=== PATIENT | male | born 1980 | race African-American/Black ===

== ENCOUNTER 2019-08-03 00:36 | Emergency (ER) | payer OTHER ==
[2019-08-03 01:49] VITALS: BMI 34.5
--- NOTE | 2019-08-03 02:04 | PDOC ---
History of Present Illness - General Chief Complaint: Edema Stated Complaint: SWELLING LEFT LEG Time Seen by Provider: 08/03/19 02:04 History Source: Patient Exam Limitations: No Limitations - History of Present Illness Initial Comments: 38 year old male with PMH obesity presented to ED for atruamatic LLE swelling x1 week. Pt denied trauma, injury, fall, chest pain, shortness of breath, fever , skin changes. ROS General: denied fever, chills, generalized weakness. HEENT: denied sore throat, rhinorrhea, ear pain. Cardiovascular: admitted to lower extremity swelling. denied chest pain, palpitations, syncope, diaphoresis. Respiratory: denied shortness of breath, cough, sputum production, hemoptysis. Gastrointestinal: denied abdominal pain, nausea, vomiting, diarrhea, constipation, blood in stool. Genitourinary: denied dysuria, increased urinary frequency, hematuria, urinary incontinence, flank pain. Back: denied back pain. Musculoskeletal: denied joint pain, muscle pain, joint swelling. Neurological: denied headache, dizziness, numbness, tingling, weakness. Integumentary: denied rash, laceration, abrasion. Hematologic/Lymphatic: denied bruising or bleeding. PE Constitutional: Well-nourished, Well-developed, appearing stated age. HEENT: head is normocephalic, atraumatic. EOMI. PERRLA. Neck: supple. Full ROM. Cardiovascular: regular heart rhythm. no murmurs. no pericardial friction rub. Respiratory: clear to auscultation bilaterally. no crackles, rhonchi or wheezing. no stridor. Gastrointestinal: soft, nontender. normal bowel sounds. no rebound, guarding, masses. Extremities: peripheral pulses intact. 4+ pitting edema LLE. 2+ pitting edema RLE. erythema and warmth to LLE. Neurological: CN 2-12 grossly intact. moves all four extremities. Psych: awake, alert, oriented x3. follows commands. answers questions appropriately. Past History - Past Medical History Allergies/Adverse Reactions: Allergies Allergy/AdvReac Type Severity Reaction Status Date / Time No Known Allergies Allergy Verified 08/03/19 01:49 Home Medications: Ambulatory Orders Ibuprofen [Motrin -] 800 mg PO TID #30 tablet 07/24/15 - Psycho Social/Smoking Cessation Hx Smoking History: Never smoked *Physical Exam - Vital Signs Last Vital Signs Temp Pulse Resp BP Pulse Ox 98.0 F 67 18 119/64 97 08/03/19 00:40 08/03/19 00:40 08/03/19 00:40 08/03/19 00:40 08/03/19 00:40 ED Treatment Course - LABORATORY CBC & Chemistry Diagram: 08/03/19 03:40 08/03/19 03:40 Medical Decision Making - Medical Decision Making 38 year old male with above PMH presented to ED for atraumatic LLE swelling x1 week. Initial Vital Signs Temp Pulse Resp BP Pulse Ox 98.0 F 67 18 119/64 97 08/03/19 00:40 08/03/19 00:40 08/03/19 00:40 08/03/19 00:40 08/03/19 00:40 Afebrile. No tachycardia. No tachypnea. No hypotension. No hypoxia on room air. Labs ordered: CBC, CMP, PT/PTT/INR Imaging ordered: bilateral duplex Medications ordered: none US called in. 08/03/19 04:32 CBC WBC 7.1 K/mm3 (4.0-10.0) 08/03/19 03:40 RBC 4.68 M/mm3 (4.00-5.60) 08/03/19 03:40 Hgb 13.6 GM/dL (11.7-16.9) 08/03/19 03:40 Hct 41.1 % (35.4-49) 08/03/19 03:40 MCV 88.0 fl (80-96) 08/03/19 03:40 MCH 29.0 pg (25.7-33.7) 08/03/19 03:40 MCHC 32.9 g/dl (32.0-35.9) 08/03/19 03:40 RDW 14.9 % (11.9-15.9) 08/03/19 03:40 Plt Count 172 K/MM3 (134-434) 08/03/19 03:40 MPV 10.5 fl (7.5-11.1) 08/03/19 03:40 Absolute Neuts (auto) 4.3 K/mm3 (1.5-8.0) 08/03/19 03:40 Neutrophils % 61.3 % (42.8-82.8) 08/03/19 03:40 Lymphocytes % 24.2 % (8-40) 08/03/19 03:40 Monocytes % 12.6 % (3.8-10.2) H 08/03/19 03:40 Eosinophils % 1.4 % (0-4.5) 08/03/19 03:40 Basophils % 0.5 % (0-2.0) 08/03/19 03:40 Nucleated RBC % 0 % (0-0) 08/03/19 03:40 CMP Sodium 140 mmol/L (136-145) 08/03/19 03:40 Potassium 4.1 mmol/L (3.5-5.1) 08/03/19 03:40 Chloride 106 mmol/L (98-107) 08/03/19 03:40 Carbon Dioxide 31 mmol/L (21-32) 08/03/19 03:40 Anion Gap 3 MMOL/L (8-16) L 08/03/19 03:40 BUN 13.8 mg/dL (7-18) 08/03/19 03:40 Creatinine 1.1 mg/dL (0.55-1.3) 08/03/19 03:40 Est GFR (CKD-EPI)AfAm 98.87 08/03/19 03:40 Est GFR (CKD-EPI)NonAf 85.31 08/03/19 03:40 Random Glucose 105 mg/dL (74-106) 08/03/19 03:40 Calcium 8.5 mg/dL (8.5-10.1) 08/03/19 03:40 Total Bilirubin 0.2 mg/dL (0.2-1) 08/03/19 03:40 AST 22 U/L (15-37) 08/03/19 03:40 ALT 35 U/L (13-61) 08/03/19 03:40 Alkaline Phosphatase 92 U/L (45-117) 08/03/19 03:40 Total Protein 6.6 g/dl (6.4-8.2) 08/03/19 03:40 Albumin 3.5 g/dl (3.4-5.0) 08/03/19 03:40 INR, PTT INR 1.01 (0.83-1.09) 08/03/19 03:40 08/03/19 05:52 US report: Referring Physician: ABBEY SMITH Comments: Rosa Pineda MD wrote on Aug 03, 2019 at 04:51 AM: Referring Physician: ABBEY SMITH Patient Name: SOURAV MEJIA THIS IS A PRELIMINARY REPORT FROM [facility] DATE OF SERVICE: 2019-08-03 04:14:03 IMAGES: 40 EXAM: DUPLEX VASCULAR US-2 LEGS HISTORY: Left lower extremity swelling with 4+ pitting edema. COMPARISON: None. FINDINGS: Compressibility, color filled, phasic flow, and augmentation noted in bilateral common femoral, upper greater saphenous, deep femoral, femoral, popliteal, and posterior tibial veins. No popliteal masses are seen. IMPRESSION: No evidence of DVT in the examined venous structures of bilateral lower extremities. THIS DOCUMENT HAS BEEN ELECTRONICALLY SIGNED Rosa Pineda MD Will treat patient for cellulitis. Medications ordered: Keflex 500 mg PO once, Bactrim 1 pill PO once Pt to F/U with PCP. Pt discharged. Discharge - Discharge Information Problems reviewed: Yes Clinical Impression/Diagnosis: Cellulitis, Swelling of lower extremity Condition: Stable Disposition: HOME - Admission No - Follow up/Referral - Patient Discharge Instructions Patient Printed Discharge Instructions: DI for Cellulitis -- Adult Additional Instructions: Follow up with your primary care doctor within 3 days. Your care is not complete until you follow up. Bring all paperwork given to you today to your appointment. Take Tylenol and/or Ibuprofen over the counter for pain. Take as advised on labels. Tylenol and Ibuprofen are not the same medication and can be used together safely. I have sent a prescription to your pharmacy for an antibiotic. Take as indicated on label. Return to the Emergency Room for increasing redness to the area, vomiting, fever , chest pain, shortness of breath, lightheadedness, palpitations, or any other new, worsening or concerning symptoms. - Post Discharge Activity Work/Back to School Note: Back to Work
--- NOTE | 2019-08-03 03:54 | PDOC ---
Attending Attestation - Resident Resident Name: Caryl Lackey - ED Attending Attestation I have performed the following: I have examined & evaluated the patient, The case was reviewed & discussed with the resident, I agree w/resident's findings & plan, Exceptions are as noted - HPI HPI: 08/03/19 04:00 38 years old with past medical history significant for obesity presents to the emergency department with 1 week history of left lower extremity swelling slight redness and pain no travel no history of DVT pain is moderate persistent constant worse with ambulation no alleviating factors - Physicial Exam PE: 08/03/19 04:00 Vitals: Triage Vital signs reviewed General Appearance: No acute distress, well nourished well developed, Head: Atraumatic, Eyes: Pupils equal reactive round, extraocular movement intact Cardiac: Regular rate and rhythym, no murmurs, no rubs, no gallops, Lungs: Clear to auscultation bilateral, good air movement bilaterally, Abdomen: Soft, non distended, normal bowel sounds, non tender to palpation Extremities: Full range of motion to all extremities, left lower extremity swollen Skin: Warm and dry, left lower extremity markedly swollen slightly warm to touch slightly red Psych: Normal mood, normal affect - Medical Decision Making 08/03/19 04:01 Several day history of left lower extremity swelling atraumatic We will check labs and antibiotics for possible cellulitis ultrasound to rule out DVT No evidence of DVT given leg swelling and warmth will treat with p.o. antibiotics patient advised to return to ED for 2 days wound check or return to the emergency department immediately for any severe worsening symptoms or for any concerns.
[2019-08-03 03:58] LABS: BASO % 0.5 % (0-2.0); EOS % 1.4 % (0-4.5); HEMATOCRIT 41.1 % (35.4-49); HEMOGLOBIN 13.6 GM/dL (11.7-16.9); LYMPH % 24.2 % (8-40); MCHC 32.9 g/dl (32.0-35.9); MEAN PLT VOLUME 10.5 fl (7.5-11.1); MONO % 12.6 % (3.8-10.2); NEUT % 61.3 % (42.8-82.8); PLATELET COUNT 172 K/MM3 (134-434); RBC 4.68 M/mm3 (4.00-5.60); RDW 14.9 % (11.9-15.9); WHITE BLOOD COUNT 7.1 K/mm3 (4.0-10.0)
[2019-08-03 04:08] LABS: INR 1.01 (0.83-1.09); PROTHROMBIN TIME (PATIENT) 11.9 SEC (9.7-13.0)
[2019-08-03 04:18] LABS: ALBUMIN 3.5 g/dl (3.4-5.0); BILIRUBIN,TOTAL 0.2 mg/dL (0.2-1); BLOOD UREA NITROGEN 13.8 mg/dL (7-18); CALCIUM 8.5 mg/dL (8.5-10.1); CREATININE 1.1 mg/dL (0.55-1.3); POTASSIUM 4.1 mmol/L (3.5-5.1); TOT PROT 6.6 g/dl (6.4-8.2)
[2019-08-03] MEDS ORDERED: SULFAMETHOXAZOLE/TRIMETHOPRIM 800MG/160MG D.S. TABLET PO ONE (05:56)
[2019-08-03] MEDS ORDERED: CEPHALEXIN MONOHYDRATE 500 MG CAPSULE (UD) PO ONE (05:56)
[2019-08-03] MEDS ORDERED: CEPHALEXIN MONOHYDRATE 500 MG CAPSULE (UD) ONE (06:07)
[2019-08-03] MEDS ORDERED: SULFAMETHOXAZOLE/TRIMETHOPRIM 800MG/160MG D.S. TABLET ONE (06:08)
[2019-08-03 06:36] VITALS: BP 126/78; PULSE 88; TEMP 98.2
== END 2019-08-03 06:20 | disposition home or self-care (01) ==
LOC: JER 00:36
DX: L03.116 Cellulitis of left lower limb (principal); E66.9 Obesity, unspecified; Z68.34 Body mass index [BMI] 34.0-34.9, adult
CPT/HCPCS: 36415; 80053; 85025; 85610; 85730; 93970-TC; 99283-25

== ENCOUNTER 2021-02-07 00:21 | Emergency (ER) | payer SELFPAY ==
[2021-02-07 00:28] VITALS: BP 161/90; PULSE 65; TEMP 97.8; BMI 40.1
[2021-02-07] MEDS ORDERED: IBUPROFEN 600 MG TABLET (FP) PO ONE ×2 (00:30→00:35)
== END 2021-02-07 00:39 | disposition home or self-care (01) ==
LOC: FER 00:21
DX: K02.9 Dental caries, unspecified (principal); K08.89 Other specified disorders of teeth and supporting structures
CPT/HCPCS: 99283-25